=== PATIENT | female | born 1950 | race Caucasian/White ===

== ENCOUNTER 2022-04-15 16:53 | Emergency (ER) | payer OTHER ==
[~2022-04-15] VITALS: Ht 165.1 cm; Wt 66.7 kg
[2022-04-15] MEDS ORDERED: METROPOLOL (18:08)
[2022-04-15] MEDS ORDERED: [UNRECOGNIZED DRUG - OTHER] (18:09)
== END 2022-04-15 21:01 | disposition home or self-care (01) ==
LOC: ER 16:53
DX: M24.452 Recurrent dislocation, left hip (principal); I10 Essential (primary) hypertension